=== PATIENT | male | born 1960 | race Two or more races ===

== ENCOUNTER 2019-06-26 19:08 | Emergency (ER) | payer OTHER ==
[~2019-06-26] VITALS: Ht 177.8 cm; Wt 81.6 kg
[2019-06-27] VITALS: BP 136/96
== END 2019-06-26 23:31 | disposition home or self-care (01) ==
LOC: EDBD 19:08 → ER 19:11
DX: S02.85XA Fracture of orbit, unspecified, initial encounter for closed fracture (principal); W01.0XXA Fall on same level from slipping, tripping and stumbling without subsequent striking against object, initial encounter; Y93.89 Activity, other specified; Y92.89 Other specified places as the place of occurrence of the external cause; Y99.8 Other external cause status
CPT/HCPCS: 36415; 70450; 70486; 80320